=== PATIENT | female | born 1985 | race Caucasian/White ===

== ENCOUNTER 2018-08-31 18:46 | Emergency (ER) | payer MEDICAID ==
[2018-08-31 18:46] VITALS: BMI 241.8
--- NOTE | 2018-08-31 20:45 | ED PDOC ---
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 Pt. stated that she has vaginal spotting when she wiped herself, no abdominal pain/nausea/vomiting/diarrhea, no night sweat, no dizziness, no change in vision, no other medical or psychological complaints. Past Medical History - Provider Review Nursing Documentation Reviewed: Yes - Infectious Disease Hx of Infectious Diseases: None - Reproductive Currently : Yes - Psychiatric Hx Substance Use: No - Anesthesia Hx Anesthesia: Yes Hx Anesthesia Reactions: No Hx Malignant Hyperthermia: No Family/Social History - Physician Review Nursing Documentation Reviewed: Yes Family/Social History: Unknown Family HX Smoking Status: Never Smoked Hx Alcohol Use: No Hx Substance Use: No Allergies/Home Meds Allergies/Adverse Reactions: Allergies No Known Allergies Allergy (Verified 02/07/16 23:01) Review of Systems - Review of Systems Constitutional: absent: Fatigue, Fevers Eyes: absent: Vision Changes ENT: absent: Hearing Changes Respiratory: absent: SOB, Cough Cardiovascular: absent: Chest Pain Gastrointestinal: absent: Abdominal Pain, Diarrhea, Nausea, Vomiting Genitourinary Female: Vaginal Bleeding, Other (pelvic cramp). absent: Dysuria, Frequency, Hematuria, Urine Output Changes, Vaginal Discharge Musculoskeletal: absent: Arthralgias, Back Pain Skin: absent: Rash, Pruritis Neurological: absent: Headache, Dizziness Psychiatric: absent: Anxiety, Depression, Suicidal Ideation Physical Exam Vital Signs Reviewed: Yes Vital Signs Temp Pulse Resp BP Pulse Ox 08/31/18 20:28 97.8 F 78 18 122/84 99 Temperature: Afebrile Blood Pressure: Normal Pulse: Regular Respiratory Rate: Normal Appearance: Positive for: Well-Appearing, Non-Toxic, Comfortable Pain Distress: Mild Mental Status: Positive for: Alert and Oriented X 3 - Systems Exam Head: Present: Atraumatic, Normocephalic Pupils: Present: PERRL Extroacular Muscles: Present: EOMI Conjunctiva: Present: Normal Mouth: Present: Moist Mucous Membranes Neck: Present: Normal Range of Motion Respiratory/Chest: Present: Clear to Auscultation, Good Air Exchange. No: Respiratory Distress, Accessory Muscle Use Cardiovascular: Present: Regular Rate and Rhythm, Normal S1, S2. 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 No: Vaginal Discharge, Vaginal Lesions, Adenexal Tenderness, Adenexal Mass, Cervical Motion Tendernes, Odor Back: Present: Normal Inspection Upper Extremity: Present: Normal Inspection. No: Cyanosis, Edema Lower Extremity: Present: Normal Inspection. No: Edema Neurological: Present: GCS=15, CN II-XII Intact, Speech Normal, Motor Func Grossly Intact, Gait Normal, Memory Normal Skin: Present: Warm, Dry, Normal Color. No: Rashes Psychiatric: Present: Alert, Oriented x 3, Normal Insight, Normal Concentration Medical Decision Making ED Course and Treatment: 08/31/18 20:46 -labs -sonogram -tylenol -observe and reassess 08/31/18 22:53 -Urine hcg is positive -Beta hcg is 40.72 -Labs show no acute findings except wbc 11.3 (likely stress induced) -UA show no UTI -Sonogram No intrauterine gestation identified. Thickened endometrium. Left ovary is not seen. -Pt. has no pain now -Type and screen: A Negative -Pt. feels well, discussed about the sonogram result and lab result, concerning for miscarriage vs. too early to see on the sonogram which will need repeat lab work at home. -Paging Obgyn Dr. Rosie Arenas for consult. 08/31/18 23:32 -Pt. had rhogam multiples before with no adverse reaction or side effect -I spoke to Dr. Arenas, discussed about the case/labs/radiology results, agreed on treatment rhogam and repeat in 2 days for beta hcg. -Rhogam ordered for For maternal hemorrhage -Discharge home with education on pelvic rest, tylenol for pain as needed, follow up with your own pmd and obgyn within 2 days including to repeat your betahcg in 2 days as it is 40.72 today, return to the ER for any new or worsening signs or symptoms. - RAD Interpretation Radiology Orders: Procedure OB Transvaginal Ultrasound History Spotting. Comparison None available. Findings Uterus Single Live intrauterine gestation. pole not present. Gestational sac not seen. heart motion not present. Yolk sac not seen. Uterus measures 9.6 x 5.5 x 5.5 cm. No mass. Endometrium is thickened measuring 2.2 cm. Cervix No cervical abnormality seen. Right Ovary Measures 2.7 x 2.1 x 2.2 cm. No mass. Normal flow. Left Ovary Not seen. Free Fluid No free fluid in pelvic cul-de-sac. . Other Findings None. Impression 1. No intrauterine gestation identified. 2. Thickened endometrium. 3. Left ovary is not seen. 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 Disposition/Present on Arrival - Present on Arrival Any Indicators Present on Arrival: No History of DVT/PE: No History of Uncontrolled Diabetes: No Urinary Catheter: No History of Decub. Ulcer: No History Surgical Site Infection Following: None - Disposition Have Diagnosis and Disposition been Completed?: Yes Diagnosis: , Vaginal spotting Disposition: HOME/ ROUTINE Disposition Time: 23:33 Patient Plan: Discharge Condition: IMPROVED Additional Instructions: -Discharge home with education on pelvic rest, tylenol for pain as needed, follow up with your own pmd and obgyn within 2 days including to repeat your betahcg in 2 days as it is 40.72 today, return to the ER for any new or worsening signs or symptoms. Referrals: Eh Zhang MD [Primary Care Provider] - Follow up with primary Rosie Arenas MD [Staff Provider] - Follow up with primary Forms: [facility] (French), WORK NOTE
[2018-08-31 21:30] LABS: BASO # 0.04 K/mm3 (0.0-2.0); BASO % 0.4 % (0.0-3.0); EOS # 0.1 (0.0-0.7); EOS % 0.4 % (1.5-5.0); HEMOGLOBIN 13.9 g/dL (12.0-16.0); LYMPH # 3.3 (1.2-3.4); LYMPH % 29.4 % (22.0-35.0); MEAN CELL VOLUME 89.4 fl (80.0-105.0); MEAN CORPUSCULAR HEMOGLOBIN 30.8 pg (25.0-35.0); MEAN CORPUSCULAR HGB CONC 34.4 g/dl (31.0-37.0); MEAN PLATELET VOLUME 9.4 fl (7.0-11.0); MONO # 0.9 (0.1-0.6); MONO % 8.2 % (1.0-6.0); RBC 4.52 10^6/uL (3.5-6.1); RED CELL DISTRIBUTION WIDTH 12.3 % (11.5-14.5); URINE BILIRUBIN NEGATIVE (NEGATIVE); URINE BLOOD MODERATE (NEGATIVE); URINE GLUCOSE (UA) NEGATIVE (NEGATIVE); URINE LEUKOCYTE ESTERASE NEGATIVE Leu/uL (NEGATIVE); URINE PROTEIN TRACE mg/dL (<30 mg/dL); URINE UROBILINOGEN 0.2 E.U./dL (<1 E.U./dL); WHITE BLOOD COUNT 11.3 10^3/uL (4.5-11.0)
[2018-08-31 21:34] LABS: URINE APPEARANCE SLIGHT-CLOUDY (CLEAR); URINE COLOR YELLOW (YELLOW)
[2018-08-31 21:43] LABS: ALB/GLOB RATIO 1.5 (1.1-1.8); ALBUMIN 4.3 g/dL (3.0-4.8); ALT/SGPT 11 U/L (7-56); AST/SGOT 18 U/L (14-36); BLOOD UREA NITROGEN 12 mg/dL (7-21); CALCIUM 9.1 mg/dL (8.4-10.5); GFR NON-AFRICAN AMERICAN > 60
[2018-08-31 21:48] LABS: URINE RBC 20 - 25 /hpf (0-2)
[2018-08-31 23:03] VITALS: O2SAT 100
[2018-08-31 23:44] VITALS: RESP 18
[2018-09-01 00:13] VITALS: BP 127/78; PULSE 78; TEMP 98
--- NOTE | 2018-09-01 12:29 | US ---
Date of service: 08/31/2018 HISTORY: spotting, cramps COMPARISON: None available. TECHNIQUE: Transabdominal/transvaginal sonographic evaluation of the pelvis performed. FINDINGS: UTERUS: Measures 9.6 x 5.5 x 5.5 cm. Normal in size and appearance. No fibroid or other mass lesion seen. ENDOMETRIUM: Measures 2.2 cm in diameter.. No evidence of intrauterine gestational sac, pole or yolk sac. CERVIX: Questionable cervical nabothian cyst. RIGHT OVARY: Measures 2.7 x 2.1 x 2.2 cm. No solid mass. Normal flow. LEFT OVARY: Not visualized FREE FLUID: No significant free fluid noted. OTHER FINDINGS: None. IMPRESSION: No definitive evidence of intrauterine gestation however the endometrium is thickened.. Left ovary is not visualized. The possibility of an ectopic cannot be excluded on this exam. Recommend follow-up serial serum beta HCG and serial pelvic ultrasound. Questionable the cervical nabothian cyst.
== END 2018-09-01 00:10 | disposition home or self-care (01) ==
LOC: ED 18:46
DX: O26.859 Spotting complicating pregnancy, unspecified trimester (principal); Z3A.00 Weeks of gestation of pregnancy not specified
CPT/HCPCS: 76817; 80053; 81001; 81025; 84702; 85025; 86850; 86900; 99284; J2792

== ENCOUNTER 2018-09-03 10:46 | Emergency (ER) | payer MEDICAID ==
[2018-09-03 11:10] VITALS: BMI 26.5
[2018-09-03 11:11] VITALS: BP 116/74; PULSE 85; RESP 18; TEMP 97.9; O2SAT 100
--- NOTE | 2018-09-03 12:31 | ED PDOC ---
Arrival/HPI - General Chief Complaint: Medical Clearance Time Seen by Provider: 09/03/18 10:49 Historian: Patient - History of Present Illness Narrative History of Present Illness (Text): 09/03/18 12:27 33yo female present for a repeat beta quant. Patient states she was seen here 3days ago and had a positive test and was instructed to come back to the ED for a repeat beta. She otherwise denies abdominal pain, nausea, vomiting, vaginal bleeding, any other complaint. Past Medical History - Provider Review Nursing Documentation Reviewed: Yes - Infectious Disease Hx of Infectious Diseases: None - Reproductive Currently : Yes - Psychiatric Hx Substance Use: No - Anesthesia Hx Anesthesia: Yes Hx Anesthesia Reactions: No Hx Malignant Hyperthermia: No Family/Social History - Physician Review Nursing Documentation Reviewed: Yes Family/Social History: Unknown Family HX Smoking Status: Never Smoked Hx Alcohol Use: No Hx Substance Use: No Allergies/Home Meds Allergies/Adverse Reactions: Allergies No Known Allergies Allergy (Verified 02/07/16 23:01) Review of Systems - Physician Review All systems were reviewed & negative as marked: Yes - Review of Systems Constitutional: Normal Eyes: Normal ENT: Normal Respiratory: Normal Cardiovascular: Normal Gastrointestinal: Normal Genitourinary Female: Normal, Other () Musculoskeletal: Normal Skin: Normal Neurological: Normal Endocrine: Normal Hemo/Lymphatic: Normal Psychiatric: Normal Physical Exam Vital Signs Reviewed: Yes Vital Signs Temp Pulse Resp BP Pulse Ox 09/03/18 11:10 97.9 F 85 18 116/74 100 Temperature: Afebrile Blood Pressure: Normal Pulse: Regular Respiratory Rate: Normal Appearance: Positive for: Well-Appearing, Non-Toxic, Comfortable Pain Distress: None Mental Status: Positive for: Alert and Oriented X 3 - Systems Exam Head: Present: Atraumatic, Normocephalic Pupils: Present: PERRL Extroacular Muscles: Present: EOMI Conjunctiva: Present: Normal Mouth: Present: Moist Mucous Membranes Neck: Present: Normal Range of Motion Respiratory/Chest: Present: Clear to Auscultation, Good Air Exchange. No: Respiratory Distress, Accessory Muscle Use Cardiovascular: Present: Regular Rate and Rhythm, Normal S1, S2. No: Murmurs Abdomen: No: Tenderness, Distention, Peritoneal Signs Back: Present: Normal Inspection Upper Extremity: Present: Normal Inspection. No: Cyanosis, Edema Lower Extremity: Present: Normal Inspection. No: Edema Neurological: Present: GCS=15, CN II-XII Intact, Speech Normal Skin: Present: Warm, Dry, Normal Color. No: Rashes Psychiatric: Present: Alert, Oriented x 3, Normal Insight, Normal Concentration Medical Decision Making ED Course and Treatment: 09/03/18 16:54 33yo female present for a repeat beta test. She was seen here 3days ago and her beta was 40.20 then. she denies abdominal pain and vaginal bleeding in ED. Beta was 72.53 today which was almost doubled her Result was DW the pt. She noted that she plan to see her OB tomorrow - Lab Interpretations Lab Results: Beta HCG, Quant 72.53 mIU/mL (0-6.15) H 09/03/18 11:47 Disposition/Present on Arrival - Present on Arrival Any Indicators Present on Arrival: No History of DVT/PE: No History of Uncontrolled Diabetes: No Urinary Catheter: No History of Decub. Ulcer: No History Surgical Site Infection Following: None - Disposition Have Diagnosis and Disposition been Completed?: Yes Diagnosis: Disposition: HOME/ ROUTINE Disposition Time: 12:30 Patient Plan: Discharge Condition: STABLE Discharge Instructions (ExitCare): Tests Additional Instructions: Follow up with your OB within a week Return to ED for any new symptoms Referrals: [facility] [place] - Follow up with primary Forms: [employer] (Japanese)
== END 2018-09-03 12:37 | disposition home or self-care (01) ==
LOC: ED 10:46
DX: Z34.90 Encounter for supervision of normal pregnancy, unspecified, unspecified trimester (principal)